=== PATIENT | female | born 1985 ===

== ENCOUNTER 2024-10-27 08:49 | Outpatient (AMB) | payer BC, SELFPAY ==
--- NOTE | 2024-10-27 08:52 | MHC.OFFVIS ---
Vital Signs 10/27/24 08:59 Height 5 ft 2 in Weight 111 lb 4 oz BMI 20.3 BP 113/76 Blood Pressure Location Rt brachial Position Sitting Pulse 78 Pulse Source Pulse Oximeter Pulse Oximetry (%) 100 Oxygen Delivery Method Room Air Intake Visit Reasons: Chronic pain related to Lupus Intake Note: Pain today 01/14 Account Executive Trainee Required: No Accompanied by: Self / Same As Patient Allergies acetaminophen (From Percocet) Adverse Reaction (Unknown, Verified 10/27/24 08:59) addiction oxycodone (From Percocet) Adverse Reaction (Unknown, Verified 10/27/24 08:59) addiction HPI Comments Details: The patient is a 39-year-old female presenting for initial evaluation with chronic pain management related to systemic lupus erythematosus (SLE) and associated sleep disturbances. The patient reports experiencing widespread joint pain affecting her fingers, wrists, elbows, and ankles since last year. The pain is described as burning, pins and needles, and is rated as 10 out of 10 in severity, particularly worsening at night. She has tried various medications including naproxen, methocarbamol, Tylenol, and topical treatments without significant relief. The patient also reports sleep disturbances due to pain and feelings of fever at night. She has been prescribed amitriptyline 10 mg, which has helped improve her sleep to some extent. The patient has a family history of lupus and kidney disease, with her sister being diagnosed with these conditions. She has undergone x-rays of her back at [facility] in March or April of the previous year. She is currently seeing a Upstream Biomanufacturing Technician for her condition. 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 She has not been on any medication for this dependence recently, except for trazodone for sleep, which she no longer uses. The patient is also noted to have anemia, vitamin B12 deficiency, folic acid deficiency, and vitamin D deficiency. - Onset: Pain began last year. - Quality: Described as burning, pulsing, throbbing, sharp, pins and needles. - Severity: Rated 10 out of 10, worse at night. - Location: Affects fingers, wrists, elbows, ankles, knees, and lower back. - Exacerbating factors: Worsens at night, movements, walking, bending, lifting, prolonged standing - Relieving factors: Amitriptyline has provided some relief for sleep. - Interference: Affects daily activities and sleep. - Affect: Pain impacts psychological well-being, causing stress and sleep disturbances. - Analgesia: Current medications include amitriptyline and previously tried naproxen, methocarbamol, Tylenol, and topical treatments without significant relief. - Adverse Effects: No specific adverse effects from current medications reported. - Activities of Daily Living: Pain affects daily functioning and home and work activities. - Aberrant Drug Related Behaviors: History of Percocet dependence, clean for six years. [facility] Medical History (Updated 10/27/24 @ 15:04 by NIURKA Lama) Polyarthralgia Hearing loss in left ear Iron deficiency Vitamin D deficiency B12 deficiency ANGELIKA positive Anxiety Anemia Asthma exacerbation, mild Opioid abuse, in remission Surgical History (Updated 10/27/24 @ 09:10 by Luma Macias) History of delivery Social History (Updated 10/27/24 @ 09:12 by Luma Macias) Alcohol intake: never e-Cigarette/Vaping Use: Currently Using Substance Use Type: Opiates Last Used Substance Other:: 6 years ago Current occupational status: employed Current occupation: [employer] Review of Systems Const Details: - Musculoskeletal: Reports widespread joint pain affecting fingers, wrists, elbows, and ankles. Denies numbness or tingling. - Neurological: Reports burning, pins and needles sensation. Denies headaches, visual disturbances or dizziness, weakness, bladder or bowel dysfunction or saddle anesthesia. - Sleep: Reports difficulty sleeping due to pain and feelings of fever at night. - Hematologic: Reports anemia, vitamin B12, folic acid, and vitamin D deficiencies. All systems reviewed & are unremarkable except as noted in HPI and below Physical Exam Vital Signs: Last Vital Signs Pulse 78 10/27/24 08:59 BP 113/76 10/27/24 08:59 Pulse Ox 100 10/27/24 08:59 Oxygen Delivery Method Room Air 10/27/24 08:59 BMI result Body Mass Index 20.3 General: Appears afebrile. Alert and oriented. Mood and affect appropriate. Follows and participates in conversation appropriately. Respiratory effort is unlabored. No cough. Able to transition from sit to stand unassisted. Ambulates with bilaterally normal heel strike and toe off. General: Yes no CVA tenderness Back/Spine/Pelvis Other: Patient is able to walk and stand on heels and tip toes with no difficulties demonstrating good motor tone. No limping. Lumbar flexion and extension reproduce moderate pain. Demonstrates 5/5 strength of quadriceps bilaterally as well as flexion/dorsiflexion of bilateral feet against resistance. 2+ pedal pulses bilaterally. Straight leg rise with dorsiflexion positive on the left. +2 patellar and +1 achilles reflexes bilaterally. Facet loading test positive bilaterally. Betty sign positive bilaterally, Yogi?s, Gaenslen, Pelvic compression and Stinchfield tests are positive bilaterally, worse on the left. No groin pain with I/E hip rotations. Valsalva maneuver negative. Multiple widespread tender points bilaterally, including upper and lower extremities. Back: no CVA tenderness and back tenderness Cervical Spine: cervical ROM normal, cervical muscular tenderness, pain with cervical ROM and No Cervical spine tenderness Thoracic/Lumbar Spine: thoracic and lumbar spine normal to inspection, No Thoracic/lumbar spine scar(s), Lasegue's sign positive on the left and diffuse, pain with thoraco-lumbar ROM, paraspinal muscle tenderness, thoraco-lumbar ROM limited, No thoracic spinal tenderness and lumbar spinal tenderness (L4-S1) Pelvis: buttock tenderness on the left Sacroiliac joints: bilaterally (left>right) tender to palpation Extrem General: Yes capillary refill normal, Yes no clubbing, cyanosis or edema and Yes no calf tenderness Results Reviewed Results Reviewed: No imaging reports are available for review. Assessment & Plan Assessment & Plan (1) Chronic pain syndrome: Code(s): G89.4 - Chronic pain syndrome Category: Medical (2) SLE (systemic lupus erythematosus related syndrome): Code(s): M32.9 - Systemic lupus erythematosus, unspecified Category: Medical (3) Low back pain: Code(s): M54.50 - Low back pain, unspecified Category: Medical (4) Lumbar radiculopathy, right: Code(s): M54.16 - Radiculopathy, lumbar region Category: Medical (5) Sacroiliac joint pain: Code(s): M53.3 - Sacrococcygeal disorders, not elsewhere classified Category: Medical (6) Polyarthralgia: Code(s): M25.50 - Pain in unspecified joint Category: Medical Plan The management plan includes initiating pregabalin for chronic pain associated with lupus and chronic pain syndrome with polyarthralgia, with monitoring for efficacy and side effects. Physical therapy is recommended to address musculoskeletal issues, focusing on the sacroiliac joint and left sided lumbar radiculopathy. Cognitive Behavioral Therapy CBT) is advised to manage the psychological impact of chronic pain and improve sleep. The patient should continue follow-up with her Upstream Biomanufacturing Technician for lupus management and discuss potential medication adjustments. A medical release from [facility] is to be obtained for previous imaging studies, with an MRI considered if physical therapy is not effective. All questions and concerns have been answered and patient agreed with the plan. Follow up after PT/medication review and sooner as needed. Patient was informed and verbally consented to the use of an ambient scribe for clinic note documentation during this visit. Orders: Orders PT Evaluation and Treatment Today G89.4 - Chronic pain syndrome, M32.9 - Systemic lupus erythematosus, unspecified, M53.3 - Sacrococcygeal disorders, not elsewhere classified, M54.16 - Radiculopathy, lumbar region, M54.50 - Low back pain, unspecified Medications: New pregabalin 50 mg PO BEDTIME 30 caps 0RF pain 30 days G89.4 - Chronic pain syndrome, M32.9 - Systemic lupus erythematosus, unspecified, M54.50 - Low back pain, unspecified Coding Level of Care Code New Pt Level 4 (31925) Diagnoses Chronic pain syndrome G89.4 SLE (systemic lupus erythematosus related syndrome) M32.9 Low back pain M54.50 Lumbar radiculopathy, right M54.16 Sacroiliac joint pain M53.3 Polyarthralgia M25.50
[2024-10-27 08:59] VITALS: BP 113/76; PULSE 78; O2SAT 100; BMI 20.3
--- OUTSIDE RECORDS SUMMARY | 2024-10-27 09:17 | XMS_ITS | Clinical Summary ---
Author Organization [facility] Address [address] [place] [address] Care Team Providers Care Fire Alarm Mechanic Name Role Phone Unavailable Primary Care Provider Unavailabl e Source Comments PLEASE NOTE, if this patient is a minor, it may be UNLAWFUL to discuss sensitive information that is contained in these records (such as FAMILY PLANNING, MENTAL HEALTH or SUBSTANCE ABUSE) with the minor patient's parent or other person without the patient's specific authorization.[facility] Immunizations Immunization Administration Dates Next Due PFIZER COVID VACCINE, PURPLE CAP, 12+ 05/10/2021 Social History Tobacco Use Types Packs/Day Years Used Date Smoking Tobacco: Never Assessed Comments Unknown Sex and Gender Information Value Date Recorded Sex Assigned at Not on file Legal Sex Female 11:01 AM PDT Gender Identity Not on file Sexual Orientation Not on file Plan of Treatment Health Maintenance Due Date Last Done Comments Anxiety Screening 1984 Diabetes Screening 1984 HPV Screening 1984 Hepatitis C Screening 1984 Pap + HPV 1984 Tobacco Screening 1984 HIV Screening 10/28/1999 Relationship Safety Screening/Counseling 10/28/1999 Hypertension Screening (#1) 2002 Imm-DTaP/Tdap/Td (1 - Tdap) 10/28/2003 Imm-Hepatitis B (1 of 3 - 19 + 3-dose series) 10/28/2003 Cervical Cancer Screening 2005 Pap Smear 2005 [id number] ( season) 2024 05/10/2021, 09/16/2020, 08/26/2020 Imm-Influenza (#1) 2024 Alcohol and Drug Screen 05/07/2024 Depression Annual Screen 05/07/2024 Cervical Ablation/Cold-Knife Conization Discontinued Cervical Cryotherapy Discontinued Colposcopy Discontinued Endometrial Biopsy Discontinued Excision/Leep Discontinued HPV Genotyping Discontinued Vaginal Pap Discontinued Vulvoscopy Discontinued Insurance [place] MEDICAID DENTAL [facility] D[facility]AL [facility] Member Subscriber Plan / Payer (Ef fective 2020-Present) Name:Tata Fuller Relation to Subscriber:Self Name:Tata Fuller Payer ID:[id number] Group ID:Not on file Type:Medicaid Address: [address] [address] [place] [address]
== END 2024-10-27 09:37 | disposition home or self-care (01) ==
PROVIDERS: PCP Physician Assistant Medical; Referring Provider Physician Assistant Medical; Visit Provider Nurse Practitioner Family
DX: G89.4 Chronic pain syndrome (principal); M32.9 Systemic lupus erythematosus, unspecified; M54.50 Low back pain, unspecified; M54.16 Radiculopathy, lumbar region; M53.3 Sacrococcygeal disorders, not elsewhere classified; M25.50 Pain in unspecified joint
CPT/HCPCS: 99204

== ENCOUNTER → 2024-10-27 08:49 | Outpatient (BNVA) | payer BC, SELFPAY | PROVIDERS: PCP Physician Assistant Medical; Referring Provider Physician Assistant Medical; Visit Provider Nurse Practitioner Family | DX: Z13.89 Encounter for screening for other disorder (principal) ==

== ENCOUNTER 2025-02-23 13:18 | Outpatient (AMB) | payer BC, SELFPAY ==
--- NOTE | 2025-02-23 13:19 | MHC.OFFVIS ---
Vital Signs 02/23/25 13:22 Height 5 ft 2 in Weight 114 lb 4 oz BMI 20.9 BP 134/77 Blood Pressure Location Rt brachial Position Sitting Pulse 76 Pulse Source Pulse Oximeter Pulse Oximetry (%) 100 Oxygen Delivery Method Room Air Intake Visit Reasons: Pain Intake Note: Pain today 01/14 Jewel Staker Required: No Accompanied by: Self / Same As Patient Allergies acetaminophen (From Percocet) Adverse Reaction (Unknown, Verified 02/23/25 13:24) addiction oxycodone (From Percocet) Adverse Reaction (Unknown, Verified 02/23/25 13:24) addiction HPI Comments Details: The patient is a 39-year-old female presenting with neck and bilateral hand pain. The neck pain was initially addressed with a recommendation for physical therapy, which the patient was unable to attend due to scheduling conflicts and work. Currently, the patient reports that the pain has shifted more towards the hands and fingers, with a burning sensation, aching and numbness. The patient has been evaluated for carpal tunnel syndrome by another provider with an EMG scheduled for March 13 at [facility]. The patient experiences burning pain in the hands, particularly affecting the fingers, and has difficulty with certain movements such as pulling the fingers and not able to make a complete fist with her left hand. The patient has not had an x-ray of the hands but will be sent for one to assess for arthritis. The patient has a history of systemic lupus erythematosus, which may be contributing to her symptoms. - Affect: Pain impacts daily activities and mood, especially when exacerbated by heavy lifting at work at [employer] and weather conditions. - Analgesia: Patient will stop Lyrica and restart gabapentin 100 mg three times a day, continue Tylenol, and Motrin for pain management. - Adverse Effects: Lyrica and amitriptyline cause drowsiness. - Activities of Daily Living: Pain limits ability to perform work-related tasks and requires adjustments such as sitting more often. - Aberrant Drug Related Behaviors: None reported. PRIOR: The patient is a 39-year-old female presenting for initial evaluation with chronic pain management related to systemic lupus erythematosus (SLE) and associated sleep disturbances. The patient reports experiencing widespread joint pain affecting her fingers, wrists, elbows, and ankles since last year. The pain is described as burning, pins and needles, and is rated as 10 out of 10 in severity, particularly worsening at night. She has tried various medications including naproxen, methocarbamol, Tylenol, and topical treatments without significant relief. The patient also reports sleep disturbances due to pain and feelings of fever at night. She has been prescribed amitriptyline 10 mg, which has helped improve her sleep to some extent. The patient has a family history of lupus and kidney disease, with her sister being diagnosed with these conditions. She has undergone x-rays of her back at [facility] in March or April of the previous year. She is currently seeing a Recreation Facility Attendant for her condition. 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 She has not been on any medication for this dependence recently, except for trazodone for sleep, which she no longer uses. The patient is also noted to have anemia, vitamin B12 deficiency, folic acid deficiency, and vitamin D deficiency. - Onset: Pain began last year. - Quality: Described as burning, pulsing, throbbing, sharp, pins and needles. - Severity: Rated 10 out of 10, worse at night. - Location: Affects fingers, wrists, elbows, ankles, knees, and lower back. - Exacerbating factors: Worsens at night, movements, walking, bending, lifting, prolonged standing - Relieving factors: Amitriptyline has provided some relief for sleep. - Interference: Affects daily activities and sleep. - Affect: Pain impacts psychological well-being, causing stress and sleep disturbances. - Analgesia: Current medications include amitriptyline and previously tried naproxen, methocarbamol, Tylenol, and topical treatments without significant relief. - Adverse Effects: No specific adverse effects from current medications reported. - Activities of Daily Living: Pain affects daily functioning and home and work activities. - Aberrant Drug Related Behaviors: History of Percocet dependence, clean for six years. [facility] Medical History Polyarthralgia Hearing loss in left ear Iron deficiency Vitamin D deficiency B12 deficiency ANGELIKA positive Anxiety Anemia Asthma exacerbation, mild Opioid abuse, in remission Surgical History History of delivery Social History Alcohol intake: never e-Cigarette/Vaping Use: Currently Using Substance Use Type: Opiates Current occupational status: employed Current occupation: [employer] Review of Systems Const Details: - Musculoskeletal: Reports neck pain, burning sensation in hands and fingers, difficulty with hand movements. - Neurological: Reports numbness and tingling in fingers, difficulty flexing left 4th finger and complete fist on the left All systems reviewed & are unremarkable except as noted in HPI and below Physical Exam Vital Signs: Last Vital Signs Pulse 76 02/23/25 13:22 BP 134/77 02/23/25 13:22 Pulse Ox 100 02/23/25 13:22 Oxygen Delivery Method Room Air 02/23/25 13:22 BMI result Body Mass Index 20.9 General: Appears afebrile. Alert and oriented. Mood and affect appropriate. Follows and participates in conversation appropriately. Respiratory effort is unlabored. No cough. Able to transition from sit to stand unassisted. Ambulates with bilaterally normal heel strike and toe off. Neck Other: Multiple widespread tender points bilaterally, including upper and lower extremities. +Tinel's and Phalen's bilaterally, left>right. Difficulty to make fist on the left and increased pain with flexion left 4th digit. Full ROM of bilateral hand, fingers, and thumbs, with increased with wrist flexion bilaterally. No erythema, no joint enlargement, no local temperature or swelling. Neck: Yes normal visual inspection, Yes full ROM, Yes no lymphadenopathy, Yes supple, No anterior neck swelling, Yes no JVD, No prominent supraclavicular fat pad and No prominent dorsocervical fat pad Back/Spine/Pelvis Cervical Spine: cervical ROM normal, cervical muscular tenderness, pain with cervical ROM and No Cervical spine tenderness Thoracic/Lumbar Spine: thoracic and lumbar spine normal to inspection, No Thoracic/lumbar spine scar(s), pain with thoraco-lumbar ROM, thoraco-lumbar ROM limited, No thoracic spinal tenderness and lumbar spinal tenderness (L4-S1) Sacroiliac joints: bilaterally (left>right) tender to palpation Extrem General: Yes capillary refill normal, Yes no clubbing, cyanosis or edema and Yes no calf tenderness Results Reviewed Results Reviewed: XR Hand Bilat min 3v 02/23/25 CLINICAL INFORMATION: Pain FINDINGS: Right hand: Osseous mineralization is within normal limits. No fracture or dislocation. No significant joint space narrowing or marginal osteophytes. No osseous erosion. No abnormal soft tissue calcification. Left hand: Osseous mineralization is within normal limits. No fracture or dislocation. No significant joint space narrowing or marginal osteophytes. No osseous erosion. No abnormal soft tissue calcification. IMPRESSION: No radiographic evidence of acute osseous findings Assessment & Plan Assessment & Plan (1) Bilateral hand pain: Code(s): M79.641 - Pain in right hand; M79.642 - Pain in left hand Category: Medical (2) Polyarthralgia: Code(s): M25.50 - Pain in unspecified joint Category: Medical (3) Carpal tunnel syndrome: Code(s): G56.00 - Carpal tunnel syndrome, unspecified upper limb Category: Medical (4) Chronic pain syndrome: Code(s): G89.4 - Chronic pain syndrome Category: Medical Plan The patient will undergo an EMG on March 13 to evaluate for carpal tunnel syndrome at [facility]. Following the EMG, a referral to a Hand specialist will be made to further assess and manage the hand symptoms. An x-ray of the hands completed today after today's visit showed no acute osseous findings. Results were called to patient. The patient is advised to stop Lyrica and restart gabapentin 100 mg three times a day, along with Tylenol and Motrin as needed for pain management. All questions and concerns have been answered and patient agreed with the treatment plan. Follow up for medication review and sooner as needed. Patient was informed and verbally consented to the use of an ambient scribe for clinic note documentation during this visit. Orders: Orders XR Hand Bilat min 3v Today M79.641 - Pain in right hand, M79.642 - Pain in left hand Referrals Hand Surgery Referral G56.00 - Carpal tunnel syndrome, unspecified upper limb, M25.50 - Pain in unspecified joint, M79.641 - Pain in right hand, M79.642 - Pain in left hand Medications: New gabapentin 100 mg PO TID 90 caps 0RF pain 30 days G56.00 - Carpal tunnel syndrome, unspecified upper limb, G89.4 - Chronic pain syndrome, M79.641 - Pain in right hand, M79.642 - Pain in left hand Discontinued pregabalin Discontinued Reason: Patient Completed Course 50 mg PO BEDTIME 30 days 30 caps 0RF pain G89.4 - Chronic pain syndrome, M32.9 - Systemic lupus erythematosus, unspecified, M54.50 - Low back pain, unspecified Coding Level of Care Code Est Pt Level 4 (36265) Complex EM visit Add On G2211 Diagnoses Bilateral hand pain M79.641; M79.642 Polyarthralgia M25.50 Carpal tunnel syndrome G56.00 Chronic pain syndrome G89.4
[2025-02-23 13:22] VITALS: BP 134/77; PULSE 76; O2SAT 100; BMI 20.9
--- OUTSIDE RECORDS SUMMARY | 2025-02-23 16:20 | XMS_ITS | Encounter Summary ---
Author Organization [facility] Address [address] [place] [address] Care Team Providers Care Urologist Physician Name Role Phone Long Cho Primary Care Provider [phone] Encounter Details Date Type Department Care Team (Late st Contact Info) Description 12/30/2024 Results Follow-Up [facility] [address] [place] [address] Band Saw Operator Cake Cutting: Alecia Beltran MD [address] [place] [id number] Social History Tobacco Use Types Packs/Day Years Used Date Smoking Tobacco: Never Passive Smoke Exposure: Never Smokeless Tobacco: Never Alcohol Use Standard Drinks/Week Comments Never 0 (1 standard drink = 0.6 oz pur e alcohol) Comments Unknown Sex and Gender Information Value Date Recorded Sex Assigned at Female 10/16/2024 10:47 AM EDT Legal Sex Female 10:45 AM EDT Gender Identity Female 12/13/2024 12:13 PM EDT Sexual Orientation Straight 12/13/2024 12 :13 PM EDT documented as of this encounter Miscellaneous Notes * Result Encounter Note - Alecia Issa MD - 12/30/2024 11:09 AM EDT Hi Mrs. Fuller, Thank you for having these labs and xrays done. The labs were negative or normal for conditions like lupus, rheumatoid arthritis and celiac disease. Your inflammation markers were normal and muscle enzyme was also normal (not suggesting muscle breakdown). The xray of your sarcoiliac joints (located at the buttock area) showed some [id number] but no damage from an autoimmune process. Overall this workup did not show a specific autoimmune rheumatic disease. Please let me know if you have questions. Best regards, Alecia Issa MD International Marketing Executive Division of Rheumatology documented in this encounter Plan of Treatment Upcoming Encounters Date Type Department Care Team (Late st Contact Info) Description 03/13/2025 8:00 AM EST Procedure visit [facility] - EMG [address] [address] Kyree Murray MD [address] [place] [id number] documented as of this encounter Visit Diagnoses Not on filedocumented in this encounter Care Teams Urologist Physician Relationship Specialty Start Date End Date Long Cho [address] [place] [address] PCP - General 10/16/24 documented as of this encounter
--- OUTSIDE RECORDS SUMMARY | 2025-02-23 16:20 | XMS_ITS | Clinical Summary ---
Author Organization [facility] Address [address] [place] [address] Care Team Providers Care Water Resources Technical Officer Name Role Phone MarquisLong hurtado Primary Care Provider [phone] Allergies Active Allergy Reactions Criticality Noted Date Comments Hydrocodone-Acetaminophen Itching,Hives 025 Oxycodone Unknown 05/03/2024 Medications amitriptyline (ELAVIL) 10 mg tablet SMARTSI Tablet(s) By Mouth Every Night Active cephalexin (KEFLEX) 500 mg capsule SMARTSI Capsule(s) By Mouth 4 Times Daily 4 Active fluticasone propionate (FLONASE) 50 mcg/actuation nasal spray SPRAY 1 SPRAY EVERY DAY BY INTRANASAL ROUTE FOR 42 DAYS, FOR SEASONAL ALLERGIES. 5 Active loratadine (CLARITIN) 10 mg tablet TAKE 1 TABLET EVERY DAY BY ORAL ROUTE FOR 42 DAYS, FOR SEASONAL ALLERGIES. 5 Active omeprazole (PriLOSEC) 10 mg capsule 5 Active ondansetron (ZOFRAN ODT) 4 mg disintegrating tablet SMARTSI Tablet(s) By Mouth 3 Times Daily PRN 4 Active triamcinolone acetonide (KENALOG) 0.1% cream SMARTSIG:Topic al Twice Daily PRN 5 Active Active Problems Problem Noted Date Diagnosed Date Chronic midline low back pain without sciatica 0 12/16/2024 Total body pain 12/16/2024 Hand paresthesia 12/16/2024 Encounters Date Type Department Care Team Description 12/30/2024 Results Follow-Up [facility] [address] [place] [address] Piano Professor: Alecia Beltran MD 12/16/2024 2:58 PM EDT - 12/16/2024 11:59 PM EDT Hospital Encounter [facility] Xray [address] [place] [address] Alecia Issa MD Chronic midline low back pain without sciatica Discharge Disposition: Home or Self Care (01) 12/16/2024 2:00 PM EDT Office Visit [facility] [address] [place] [address] Piano Professor: Alecia Beltran MD Chronic midline low back pain without sciatica (Primary Dx); Total body pain; Hand paresthesia from Last 3 Months Social History Tobacco Use Types Packs/Day Years Used Date Smoking Tobacco: Never Passive Smoke Exposure: Never Smokeless Tobacco: Never Tobacco Cessation:Counseling Given: Not Answered Alcohol Use Standard Drinks/Week Comments Never 0 (1 standard drink = 0.6 oz pur e alcohol) Comments Unknown Sex and Gender Information Value Date Recorded Sex Assigned at Female 10/16/2024 10:47 AM EDT Legal Sex Female 10:45 AM EDT Gender Identity Female 12/13/2024 12:13 PM EDT Sexual Orientation Straight 12/13/2024 12 :13 PM EDT Last Filed Vital Signs Vital Sign Reading Time Taken Comments Blood Pressure 110/69 12/16/2024 2:03 PM EDT Pulse 83 12/16/2024 2:03 PM EDT Temperature 36.8 C (98.2 F) 12/16/2024 2:03 PM EDT Respiratory Rate - - Oxygen Saturation - - Inhaled Oxygen Concentration - - Weight 51.7 kg (114 lb) 12/16/2024 2:03 PM EDT Height - - Body Mass Index - - Plan of Treatment Upcoming Encounters Date Type Department Care Team (Late st Contact Info) Description 03/13/2025 8:00 AM EST Procedure visit [facility] [address] [facility] [address] [place] [address] [place] [address] Kyree Murray MD [address] [place] [address] Health Maintenance Due Date Last Done Comments Cervical Cancer Screening 1984 HIV Screening 1984 HPV and Pap Smear 1984 Hepatitis C Screening 1984 Pap Smear 1984 Varicella Vaccines (1 of 2 - 13+ 2-dose series) 1997 Hepatitis B Vaccines (1 of 3 - 19+ 3-dose series) 10/28/2003 Pneumococcal Vaccine: Pediat jose manuel (0-5 Years) and At-Risk Patients (6-50 Years) (1 of 2 - PCV) 10/28/2003 DTaP,Tdap,and Td Vaccines (2 - Td or Tdap) 10/26/2021 2011 Alcohol/Substance Use Screening 05/07/2024 Depression Screening and Follow-Up 05/07/2024 Social Drivers of Health Marycruz ual Screening 05/07/2024 Mammogram 2024 COVID-19 Vaccine ( season) 2025 05/10/2021, 09/16/2020, 08/26/2020 Influenza Vaccine (#1) 2025 03/25/2015, 2006 RSV Vaccine (60+ years old a nd patients) (1 - 1-dose 75+ series) 10/28/2059 Procedures * Due to [place] state law, this organization might not be sharing negative HIV tests. Procedure Name Priority Date/Time Associated Diagnosis Comments ANGELIKA, TITER AND PATTERN Routine 3:27 PM EDT Total body pain CK Routine 12/16/2024 3:27 PM EDT Total body pain SEDIMENTATION RATE, AUTOMATED Routine 12/16/2024 3:27 PM EDT Total body pain C-REACTIVE PROTEIN Routine 12/16/2024 3: 27 PM EDT Total body pain CYCLIC CITRULLLNATED PEPTIDE (CCP) ANTIBODY, IGG Routine 12/16/2024 3:27 PM EDT Total body pain RHEUMATOID FACTOR Routine 12/16/2024 3:2 7 PM EDT Total body pain COMPLEMENT C3C AND C4C Routine 3:27 PM EDT Total body pain IMMUNOGLOBULINS PANEL (IGG, IGA, IGM) Routine 12/16/2024 3:27 PM EDT Total body pain ANGELIKA SCREEN, IFA, W/REFLEX TO TITER & PATTERN Routine 12/16/2024 3:27 PM EDT Total body pain ANGELIKA SPECIFIC ANTIBODY Routine 12/16/2024 3:27 PM EDT Total body pain CELIAC DISEASE DIAGNOSITC PANEL Routine 12/16/2024 3:27 PM EDT Total body pain XR SACROILIAC JOINTS 3+ VW Routine 12/16/2024 3:07 PM EDT Chronic midline low back pain without sciatica from Last 3 Months Results * Due to [place] state law, this organization might not be sharing negative HIV tests. * (ABNORMAL) ANGELIKA, Titer and Pattern (12/16/2024 3:27 PM EDT) ANGELIKA Titer 1 1:80(H) titer 12/19/2024 11:09 AM EDT [employer] Comment: A low level ANGELIKA titer may be present in pre-clinical autoimmune diseases and normal individuals. Reference Range <1:40 Negative 1:40-1:80 Low Antibody Level >1:80 Elevated Antibody Level ANGELIKA Pattern 1 Nuclear, Homogeneo us(A) 12/19/2024 11:09 AM EDT [employer] Comment: Homogeneous pattern is associated with systemic lupus erythematosus (SLE), drug-induced lupus and juvenile idiopathic arthritis. AC-1: Homogeneous International Consensus on ANGELIKA Patterns (https://doi.org/10.1515/klfu-8885-9768) Blood Structure of peripheral vein / Unknown Venipuncture / Unknown 12/16/2024 3:27 PM EDT 12/16/2024 3:44 PM EDT V[facility]EN - 12/19/2024 11:09 AM EDT [facility] Received Date:[id number] us Alecia Issa MD LAB BLOOD ORDERABLES Final Re sult [facility] [address], [place] [address], [place] [phone] [employer] [facility] [address], [place] [address], [place] [phone] * Complement C3c and C4c (12/16/2024 3:27 PM EDT) Complement Component C3C 112 83 - 193 mg/dL 12/17/2024 7:51 AM EDT [employer] [facility] Complement Component C4C 17 15 - 57 mg/dL 12/17/2024 7:51 AM EDT [employer] [facility] Blood Structure of peripheral vein / Unknown Venipuncture / Unknown 12/16/2024 3:27 PM EDT 12/16/2024 3:44 PM EDT V[facility] GOODEN - 12/17/2024 7:51 AM EDT [facility] Received Date:[id number] us Alecia Issa MD LAB BLOOD ORDERABLES Final Re sult [facility] [address], [place] [address], [place] [phone] [employer] [facility] [address], [place] [address], [place] [phone] * Celiac Diagnostic Panel w/Gliadin, All Ages (Includes: IgA, tTG IgA/IgG and Giadin IgA/IgG) (12/16/2024 3:27 PM EDT) Tissue Transglutaminase Ab, IgG <1.0 U/mL 12/18/2024 11:17 PM EDT [employer] [facility] Comment: Value Interpretation ----- <15.0 Antibody not detected > or = 15.0 Antibody detected Tissue Transglutaminase Ab, IgA <1.0 U/mL 12/18/2024 11:17 PM EDT [employer] [facility] Comment: Value Interpretation ----- <15.0 Antibody not detected > or = 15.0 Antibody detected Gliadin Ab IgA <1.0 U/mL 12/18/2024 11:17 PM EDT [employer] [facility] Comment: Value Interpretation ----- <15.0 Antibody not detected > or = 15.0 Antibody detected Gliadin Ab IgG <1.0 U/mL 12/18/2024 11:17 PM EDT [employer] [facility] Comment: Value Interpretation ----- <15.0 Antibody not detected > or = 15.0 Antibody detected Immunoglobulin A 214 47 - 310 mg/dL 12/18/2024 11:17 PM EDT [employer] [facility] Blood Structure of peripheral vein / Unknown Venipuncture / Unknown 12/16/2024 3:27 PM EDT 12/16/2024 3:44 PM EDT [facility] - 12/18/2024 11:17 PM EDT [facility] Received Date: Alecia Issa MD LAB BLOOD ORDERABLES Final Re sult [facility] [address] [facility] 3rd Floor, [place] [address], [place] [phone] [employer] [facility] 200 [facility] 3rd Floor, [place] [address], [place] [phone] * Cyclic Citrullinated Peptide (CCP) Antibody, IgG (12/16/2024 3:27 PM EDT) Cyclic Citrullinated Peptide (CCP) Ab (IgG) <16 UNITS 12/19/2024 10:27 PM EDT [employer] [facility] Comment: Reference Range Negative: <20 Weak Positive: 20-39 Moderate Positive: 40-59 Strong Positive: >59 Blood Structure of peripheral vein / Unknown Venipuncture / Unknown 12/16/2024 3:27 PM EDT 12/16/2024 3:44 PM EDT [facility] - 12/19/2024 10:27 PM EDT [facility] Received Date: us Alecia Issa MD LAB BLOOD ORDERABLES Final Re sult Performing Organization Address City/[facility]/ZIP Co de Phone Number SHAHLA [place] [address] [facility] 3rd Floor, [place] [address], [place] [phone] [employer] [facility] [address], [place] [address], [place] [phone] * (ABNORMAL) ANGELIKA Screen, IFA, w/Reflex to Titer & Pattern (12/16/2024 3:27 PM EDT) ANGELIKA Screen, IFA POSITIVE (A) NEGATIVE 12/19/2024 11:09 AM EDT [employer] [facility] Comment: ANGELIKA IFA is a first line screen for detecting the presence of up to approximately 150 autoantibodies in various autoimmune diseases. A positive ANGELIKA IFA result is suggestive of autoimmune disease and reflexes to titer and pattern. Further laboratory testing may be considered if clinically indicated. For additional information, please refer to http://education.AppTap/faq/CEO138 (This link is being provided for informational/ educational purposes only.) Blood Structure of peripheral vein / Unknown Venipuncture / Unknown 12/16/2024 3:27 PM EDT 12/16/2024 3:44 PM EDT [facility] - 12/19/2024 11:09 AM EDT [facility] Received Date: us Alecia Issa MD LAB BLOOD ORDERABLES Final Re sult SHAHLA GOODEN [address] [facility] 3rd Floor, [place] [address], [place] [phone] [facility] 200 [facility] 3rd Floor, [place] [address], [place] [phone] * Sedimentation Rate (12/16/2024 3:27 PM EDT) Sed Rate 9 <20 mm/Hr mm/Hr 12/16/2024 3:58 PM EDT [facility] Blood Structure of peripheral vein / Unknown Venipuncture / Unknown 12/16/2024 3:27 PM EDT 12/16/2024 3:44 PM EDT us Alecia Issa MD LAB BLOOD ORDERABLES Final Re sult [facility] [address] [place] [address], [place] * Rheumatoid Factor (12/16/2024 3:27 PM EDT) Rheumatoid Factor <10 <14 IU/mL 12/17/2024 4:15 AM EDT [employer] [facility] Blood Structure of peripheral vein / Unknown Venipuncture / Unknown 12/16/2024 3:27 PM EDT 12/16/2024 3:44 PM EDT Narrative [facility] - 12/17/2024 4:15 AM EDT [facility] Received Date:[id number] us Alecia Issa MD LAB BLOOD ORDERABLES Final Re sult SHAHLA GOODEN [address] [facility] 3rd Floor, [address] [facility] [place] [address], [place] [phone] [facility] 200 [facility] 3rd Floor, [place] [address], [place] [phone] * Immunoglobulins Panel (IgG, IgA, IgM) (12/16/2024 3:27 PM EDT) Immunoglobulin A 205 47 - 310 mg/dL 12/17/2024 4:15 AM EDT [employer] [facility] IgG, Serum 1277 600 - 1640 mg/dL 12/17/2024 4:15 AM EDT [employer] [facility] Immunoglobulin M 202 50 - 300 mg/dL 12/17/2024 4:15 AM EDT [employer] [facility] Blood Structure of peripheral vein / Unknown Venipuncture / Unknown 12/16/2024 3:27 PM EDT 12/16/2024 3:44 PM EDT [facility] - 12/17/2024 4:15 AM EDT [facility] Received Date:[id number] Alecia Issa MD LAB BLOOD ORDERABLES Final Re sult Performing Organization Address City/[facility]/ZIP Co de Phone Number [facility] [address] [facility] [address] [facility], [place] [address], [place] [phone] [employer] [facility] 200 [facility] [address] [facility], [place] [address], [place] [phone] * C-Reactive Protein (12/16/2024 3:27 PM EDT) Pathologist [facility] C Reactive Protein <3.0 <=9.9 mg/L 12/16/2024 4:25 PM EDT [facility] Blood Structure of peripheral vein / Unknown Venipuncture / Unknown 12/16/2024 3:27 PM EDT 12/16/2024 3:44 PM EDT Alecia Issa MD LAB BLOOD ORDERABLES Final Re sult [facility] [address] [place] [address], * ANGELIKA Specific Antibody w/Reflex to [place] (12/16/2024 3:27 PM EDT) Pathologist [facility] ANGELIKA Screen, Immunoassay NEGATIVE NEGATIVE 12/17/2024 9:17 PM EDT [employer] [facility] Comment: A negative ANGELIKA Multiplex indicates the absence of detectable antibodies to component analytes consisting of double stranded DNA (dsDNA), chromatin, ribonucleoprotein (CUSTOMER SUPPORT REPRESENTATIVE), Piedra/CUSTOMER SUPPORT REPRESENTATIVE (Sm/CUSTOMER SUPPORT REPRESENTATIVE), Piedra (Sm), SS-A, SS-B, Layla-1, centromere B, Scl-70 and ribosomal P. A negative result should be interpreted in the context of the clinical and laboratory findings and does not rule out autoimmune disease characterized by other autoantibody specificities such as rheumatoid arthritis, autoimmune hepatitis, primary biliary cirrhosis, autoimmune thyroiditis, Kittson's disease, pernicious anemia, autoimmune neuropathies, vasculitis, celiac disease, and bullous disease. For additional information, please refer to http://education.AppTap/faq/HHY406 (This link is being provided for informational/ educational purposes only.) Blood Structure of peripheral vein / Unknown Venipuncture / Unknown 12/16/2024 3:27 PM EDT 12/16/2024 3:44 PM EDT Narrative [facility] [place] - 12/17/2024 9:17 PM EDT [facility] Received Date: us Alecia Issa MD LAB BLOOD ORDERABLES Final Re sult Performing Organization Address City/State/[facility] Co de Phone Number [facility] [address] [facility] 3rd Floor, [place] [address], [place] [phone] [employer] [facility] 200 [facility] 3rd Floor, [place] [address], [place] [phone] * Creatine Kinase (12/16/2024 3:27 PM EDT) CK 80 38 - 206 U/L 12/16/2024 4:21 PM EDT [facility] Blood Structure of peripheral vein / Unknown Venipuncture / Unknown 12/16/2024 3:27 PM EDT 12/16/2024 3:44 PM EDT us Alecia Issa MD LAB BLOOD ORDERABLES Final Re sult [facility] [address] [place] [address], [place] * XR Sacroiliac Joints 3+ vw (12/16/2024 3:07 PM EDT) Anatomical Region Laterality Modality Body, Spine, Pelvis Computed Rad iography 12/16/2024 3:16 PM EDT Impressions 12/16/2024 3:17 PM EDT SI joints AP and bilateral oblique views. Mild osteopenia. 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 No erosions suggestive of sacroiliitis or any other arthritides. No acute fractures or dislocations. If this radiology report contains a blank impression section, it is an incomplete radiology report. Please contact the interpreting radiologist or applicable radiology division as soon as possible to obtain the completed interpretation. Workstation ID: [id number] Narrative 12/16/2024 3:17 PM EDT COMPARISON: There are no prior studies available for comparison at this time. FINDINGS AND Resulting Agency Comment [id number] Procedure Note Aster Petit MD - 12/16/2024 COMPARISON: There are no prior studies available for comparison at thistime. FINDINGS AND IMPRESSION: SI joints AP and bilateral oblique views. Mild osteopenia. Bilaterallydegenerative arthropathy of the SI joints right slightly greater thanleft. No erosions suggestive of sacroiliitis or any other arthritides. No acutefractures or dislocations. If this radiology report contains a blank impression section, it is anincomplete radiology report. Please contact the interpreting radiologistor applicable radiology division as soon as possible to obtain thecompleted interpretation. Workstation ID: [id number] Alecia Issa MD IMG XR PROCEDURES Final Resul t from Last 3 Months Insurance [facility] Care Teams Water Resources Technical Officer Relationship Specialty Start Date End Date Long Cho [address] [place] [address] PCP - General 10/16/24
--- OUTSIDE RECORDS SUMMARY | 2025-02-23 16:20 | XMS_ITS | Clinical Summary ---
Author Organization [facility] Address [address] [place] [address] Phone Care Team Providers Care Order Processing Manager Name Role Phone Long Cho Primary Care Provider [phone] Allergies Active Allergy Reactions Criticality Noted Date Comments Oxycodone Unknown 05/03/2024 Medications methocarbamoL (ROBAXIN) 750 mg tablet Take 1 tablet (750 mg total) by mouth 4 (four) times a day. 12 each 4 Active phenazopyridine (PYRIDIUM) 100 mg tablet Take 1 tablet (100 mg total) by mouth 3 (three) times a day if needed for bladder spasms. 6 tablet 4 Active fluticasone propionate (FLONASE) 50 mcg/actuation nasal spray SPRAY 1 SPRAY EVERY DAY BY INTRANASAL ROUTE FOR 42 DAYS, FOR SEASONAL ALLERGIES. 5 Active loratadine (CLARITIN) 10 mg tablet TAKE 1 TABLET EVERY DAY BY ORAL ROUTE FOR 42 DAYS, FOR SEASONAL ALLERGIES. 5 Active naproxen (NAPROSYN) 500 mg tablet TAKE 1 TABLET BY MOUTH EVERY 12 HOURS WITH FOOD NEEDED 5 Active amitriptyline (ELAVIL) 10 mg tablet Take by mouth at bedtime. Active omeprazole OTC (PriLOSEC OTC) 20 mg EC tablet Take 1 tablet (20 mg total) by mouth 1 (one) time each day. Do not crush, chew, or split. Active Active Problems Problem Noted Date Diagnosed Date Low back pain 10/20/2024 Bipolar affective disorder (CMS/HCC V24, CMS/HCC V28) 10/20/2024 Anemia Anxiety Asthma Opiate abuse, continuous (CMS/[facility] V24, CMS/[facility] V 28) Medical History Medical History Date Comments Anxiety Asthma Opiate abuse, continuous (CMS/[facility] V24, CMS/[facility] V 28) Anemia Family History Medical History Relation Name Comments Hyperlipidemia Father Breast cancer Maternal Grandfather Lupus Mother Rheum arthritis Mother Stroke Mother Multiple sclerosis Other DAUGHTER Fibromyalgia Sister Diabetes type II Son Relation Name Status Comments Father Maternal Grandfather Mother Other Sister Son Alive Social History Tobacco Use Types Packs/Day Years Used Date Smoking Tobacco: Never Smokeless Tobacco: Never Tobacco Cessation:Counseling Given: Not Answered Comments Unknown Sex and Gender Information Value Date Recorded Sex Assigned at Not on file Legal Sex Female 4:31 PM EST Gender Identity Not on file Sexual Orientation Not on file Obstetrics History Last Filed Vital Signs Vital Sign Reading Time Taken Comments Blood Pressure 132/86 05/05/2024 12:15 AM EST Pulse 97 05/05/2024 12:15 AM EST Temperature 37.1 C (98.8 F) 05/05/2024 12:15 AM EST Respiratory Rate 18 05/04/2024 10:17 PM EST Oxygen Saturation 99% 05/05/2024 12:15 AM EST Inhaled Oxygen Concentration - - Weight 49.9 kg (110 lb) 05/04/2024 7:52 PM EST Height 157.5 cm (5' 2 ) 05/04/2024 7:52 PM EST Body Mass Index 20.12 05/04/2024 7:52 PM EST Plan of Treatment Health Maintenance Due Date Last Done Comments Breast Cancer Screening 1984 Hepatitis A Vaccines (1 of 2 - Risk 2-dose series) 10/28/2003 Hepatitis B Vaccines (1 of 3 - 19+ 3-dose series) 10/28/2003 Pneumococcal Vaccine: Pediatrics (0 to 5 Years) and At-Risk Patients (6 to 49 Years) (1 of 2 - PCV) 10/28/2003 Cervical Cancer Screening: P ap Smear 2005 HPV Vaccines (1 - 3-dose SCD M series) 10/28/2011 DTaP,Tdap,and Td Vaccines (2 - Td or Tdap) 10/26/2021 2011 HIV Screening 04/05/2022 Hepatitis C Screening 04/05/2022 Social Influencers of Health Screening 04/05/2022 Depression Screening 05/07/2024 COVID-19 Vaccine (4 - 2024-2 6 season) 2025 05/10/2021, 09/16/2020, 08/26/2020 Influenza Vaccine (#1) 2025 5, 04/24/2007 RSV Immunization Adult Patients (1 - 1-dose 75+ series) 10/28/2059 HIB Vaccines Aged Out No longer eligi ble based on patient's age to complete this topic IPV Vaccines Aged Out No longer eligi ble based on patient's age to complete this topic MMR Vaccines Aged Out No longer eligi ble based on patient's age to complete this topic Meningococcal ACWY Vaccine Aged Out N o longer eligible based on patient's age to complete this topic Meningococcal B Vaccine Aged Out No l onger eligible based on patient's age to complete this topic RSV Immunization Patients Under 20 months Aged Out No longer eligible b ased on patient's age to complete this topic Varicella Vaccines Aged Out No longer eligible based on patient's age to complete this topic Insurance [facility] Member Subscriber Plan / Payer ( fective 2024-Present) Name:DALIA BERGMAN Relation to Subscriber:Self Name:Becky Bergmanalicia Payer ID:[id number] Type:Not on file Address: [address] Care Teams Order Processing Manager Relationship Specialty Start Date End Date Long Cho PA [address] [place] [address] PCP - General Primary Care 10/15/24
--- OUTSIDE RECORDS SUMMARY | 2025-02-23 16:20 | XMS_ITS | Clinical Summary ---
Author Organization [facility] Address [address] [place] [address] Care Team Providers Care Nutrition Manager Name Role Phone Unavailable Primary Care Provider [...] Screening 1984 Diabetes Screening 1984 HPV Screening (self-collect) 1984 HPV Screening 1984 Hepatitis C Screening 1984 Lipid Screening 1984 Pap + HPV 1984 Tobacco Screening 1984 HIV Screening 10/28/1999 Relationship Safety Screening/Counseling 10/28/1999 Hypertension Screening (#1) 2002 Imm-DTaP/Tdap/Td (1 - Tdap) 10/28/2003 Imm-Hepatitis B (1 of 3 - 19 + 3-dose series) 10/28/2003 Cervical Cancer Screening 2005 Pap Smear 2005 Imm-HPV (1 - 3-dose SCDM series) 10/28/2011 Alcohol and Drug Screen 05/07/2024 Depression Annual Screen 05/07/2024 Breast Cancer Screening (Mammogram) 2024 [id number] ( season) 2025 05/10/2021, 09/16/2020, 08/26/2020 Imm-Influenza (#1) 2025 Cervical Ablation/Cold-Knife Conization Discontinued Cervical Cryotherapy Discontinued Colposcopy Discontinued Excision/Leep Discontinued HPV Genotyping Discontinued Vaginal Pap Discontinued Vulvoscopy Discontinued Insurance [place] D[place] [facility] [place] [address] [place] [address] PLAN Member Subscriber Plan / Payer (Ef fective 2020-Present) Name:Tata Fuller Relation to Subscriber:Self Name:Tata Fuller Payer ID:[id number] Group ID:Not on file Type:Medicaid Address: [address] [address] [place] [address]
== END 2025-02-23 13:33 | disposition home or self-care (01) ==
LOC: HO.PMC 13:18
PROVIDERS: PCP Physician Assistant Medical; Visit Provider Nurse Practitioner Family
DX: M79.641 Pain in right hand (principal); M79.642 Pain in left hand; M25.50 Pain in unspecified joint; G56.00 Carpal tunnel syndrome, unspecified upper limb; G89.4 Chronic pain syndrome
CPT/HCPCS: 99214

== ENCOUNTER 2025-02-23 13:18 | Outpatient (REF) | payer BC, SELFPAY ==
--- NOTE | ~2025-02-23 | XR_ITS ---
EXAMINATION: X-ray bilateral hands CLINICAL INFORMATION: Pain COMPARISON: None TECHNIQUE: Right hand 3 views. Left hand 3 views. FINDINGS: Right hand: Osseous mineralization is within normal limits. No fracture or dislocation. No significant joint space narrowing or marginal osteophytes. No osseous erosion. No abnormal soft tissue calcification. Left hand: Osseous mineralization is within normal limits. No fracture or dislocation. No significant joint space narrowing or marginal osteophytes. No osseous erosion. No abnormal soft tissue calcification. XR/XR Hand Bilat min 3v IMPRESSION: No radiographic evidence of acute osseous findings Electronically signed by: Patrick Choi MD 02/23/2025 02:39 PM EDT RP
--- OUTSIDE RECORDS SUMMARY | 2025-02-23 17:04 | XMS_ITS | Data Portability ---
Author Organization [place] [facility] Formerly [facility], Allergy Address [address] [address] Assessment Encounter Date Assessment Date Assessment LastModified by Organization Details LastModified Time 07/24/2024 07/24/2024 38yo female presents for evaluation of subjective left-sided hearing loss. She has associated left ear popping, frequent sneezing, and facial pruritus. Exam is unremarkable. Recommend trial of Fluticasone 2 sprays in each nostril daily and oral Loratadine. No history of glaucoma. Audiometric testing demonstrates normal hearing and normal tympanometry. The patient will return in 6 weeks for reevaluation. If symptoms persist, will obtain formal skin allergy testing. Patient agrees with the plan and all questions were answered. [email or web address] Not available 07/24/2024 12:36:55 Plan of Treatment Reminders Order Date Submit Date Provider Last Modified By Organization Details Last Modified Time Details Appointments None recorded. Lab None recorded. Referral None recorded. Procedures None recorded. Surgeries None recorded. Imaging None recorded. Medication Orders fluticasone propionate 50 mcg/actuati on nasal spray,suspe nsion 2024 025 [facility]acy #[id number], [phone] [place], [address], 12:22:14 loratadine 10 mg tablet 2024 025 [facility]/Pharmacy #[id number], [phone] [place], [address], 12:22:14 Patient TargetsNo targets recorded. Patient InstructionsNo instructions recorded. Reason for Referral None Reported. Results Created Date Observation Date Name Description Value Unit Range Abnormal Flag Note LastModifiedBy Organization Detail LastModifiedTime 07/25/19 audio gram No observ ation record ed. BARCODE Not Available 2024 13:38:58 Result Notes None recorded. Problems Name Problem SNOMED Code Status Onset Date Resolution Date Notes Provider Name and Address Organization Details Recorded Time Sudden sensorineur al hearing loss 951485119 Active 2024 SCOTT MAURILIOABRAHAM, AUD [facility] [place],[facility] [address] [facility], [place], [address], [facility] [place] 11:08:24 Abnormal auditory perception 22631998 Active 2024 SCOTT MAURILIOABRAHAM, AUD [address] [facility] [place],[facility], [place], [address], [facility] [place] 11:12:43 Allergic rhinitis 27575283 Active 2024 NOELLE GOMEZ PA-C [address] [facility], [place], [address], [facility] [place] 12:21:18 Non-allergi c rhinitis 935098489547 Active 2024 NOELLE GOMEZ PA-C [address] [facility], [address] [facility], [place], [address], [facility] - [facility] [place] 12:21:18 Seasonal allergic rhinitis 985383443 Active 2024 NOELLE GOMEZ PA-C [address] [facility] [address] [facility], [place], [address], [facility] - [facility] [place] 12:21:18 Problem Notes None recorded. Procedures Surgical History Date Name Laterality Status Provider Name and Address Organization Details Recorded Time 07/24/2024 Comp Audio with Tymps - 37039 & 12209 completed SCOTT ANJU, AUD [address] [place],[address], [address], [facility] - [facility] [place] 07/24/2024 11:07:58 Imaging Results None recorded. Procedure Notes None recorded. Medical Equipment None Reported. Allergies No known drug allergies Medications Name Sig Start Date Stop Date Status Note LastModified by Organization Details LastModified Time methocarbam ol 500 mg tablet TAKE 1 TABLET BY MOUTH FOUR TIMES A DAY NEEDED active Not Available Not Available No t Available valacyclovi r 1 gram tablet TAKE 1 TABLET BY MOUTH TWICE A DAY active Not Available Not Available No t Available metronidazo le 0.75 % (37.5 mg/5 gram) vaginal gel INSERT 1 APPLICATO RFULE INTRAVAGI ROMINA DAILY X 5 DAYS active Not Available Not Available No t Available sulfamethox azole 800 mg-trimetho prim 160 mg tablet 1 TABLET BY MOUTH EVERY 12 HOURS,X7 DAYS,INST R:DRINK PLENTY OF FLUIDS 07/24 completed Not Available Not Available Not Available triamcinolo ne acetonide 0.1 % topical cream APPLY TWICE DAILY TO RASH UP TO 2 WEEKS/Sun NEEDED. active Not Available Not Available No t Available methocarbam ol 750 mg tablet TAKE 1 TABLET BY MOUTH 4 TIMES A DAY. active Not Available Not Available No t Available amitriptyli ne 10 mg tablet TAKE 1 TABLET BY MOUTH EVERYDAY AT BEDTIME active Not Available Not Available No t Available meclizine 25 mg tablet TAKE 1 TABLET BY MOUTH EVERY DAY FOR 14 DAYS FOR MOTION SICKNESS active Not Available Not Available No t Available phenazopyri dine 100 mg tablet TAKE 1 TABLET (100 MG TOTAL) BY MOUTH 3 TIMES A DAY NEEDED BLADDER SPASMS 07/24 completed Not Available Not Available Not Available cephalexin 500 mg capsule TAKE 1 CAPSULE BY MOUTH FOUR TIMES A DAY FOR 10 DAYS 07/24 completed Not Available Not Available Not Available omeprazole 20 mg capsule,del ayed release TAKE 1 CAPSULE BY MOUTH ONCE DAILY 30 MINUTES TO 1 HOUR BEFORE A MEAL active Not Available Not Available No t Available gabapentin 100 mg capsule TAKE 1 CAPSULE BY MOUTH THREE TIMES A DAY NEEDED FOR PAIN active Not Available Not Available No t Available ondansetron 4 mg disintegrat ing tablet LET 1 TABLET DISSOLVE ON THE TONGUE THREE TIMES DAILY NEEDED FOR NAUSEA OR VOMITING. active Not Available Not Available No t Available fluticasone propionate 50 mcg/actuati on nasal spray,suspe nsion SPRAY 2 SPRAY EVERY DAY INTO BOTH NOSTRILS FOR 42 DAYS, FOR SEASONAL ALLERGIES . active Not Available Not Available No t Available loratadine 10 mg tablet TAKE 1 TABLET EVERY DAY BY ORAL ROUTE FOR 42 DAYS, FOR SEASONAL ALLERGIES . active Not Available Not Available No t Available naproxen 500 mg tablet TAKE 1 TABLET BY MOUTH EVERY 12 HOURS WITH FOOD NEEDED active Not Available Not Available No t Available nitrofurant oin monohydrate /macrocryst als 100 mg capsule TAKE 1 CAPSULE BY MOUTH EVERY 12 HOURS WITH FOOD 02/08 completed Not Available Not Available Not Available pregabalin 50 mg capsule TAKE 1 CAPSULE BY MOUTH EVERY DAY AT BEDTIME FOR PAIN active Not Available Not Available No t Available Vitals Date Recorded Body height Body mass index (BMI) Body weight Provider Name and Address Organization Details Last Updated DateTime 07/24/2024 157.48 cm 20.1 kg/m2 59614.16 g Emely Gibbons [place] [facility] 07/24/2024 11:26:33 Social History None recorded. Functional Status None recorded. Mental Status None recorded. Family History Nothing Reported. Medical History Condition Response Hearing Loss Y Gynecological HistoryNo gynecological history recorded. Obstetrics History GPAL:G 0 P 0 0 0 0 Past Encounters Encounter ID Performer Location Encounter Start Date Encounter Closed Date Diagnosis/Indication Diagnosis SNOMED-CT Code Diagnosis ICD10 Code Diagnosis IMO Codes Diagnosis Note [id number] NOELLE GOMEZ PA-C [facility] [address] [address] 07/24/2024 10:47:18 07/24/2024 11:57:40 Abnormal auditory perception 19700921 H93.299 Right Ear:Normal hearing with excellent speech discrimina tion.Type A tympanogra m.Left Ear:Normal hearing with excellent speech discrimina tion.Type A tympanogra m. Seasonal a llergic rhinitis 417099632 J30.2 Health Concerns Section Related Observation LastModified by Organization Detai ls LastModified Time None Recorded Concern Status LastModified by Organization Details LastModified Time None Recorded Advance Directives Directive None Recorded Payers Insurance Date Sequence Insurance Name Policy Number Policy Martines Covered Member ID Martines Member ID Guarantor Name 07/25/2024 1 [employer]-ID [facility] 35C Tata Fuller [id number] Tata Fuller 08/01/2024 1 [employer]-ID: [facility] [place] EMPLOYEE PROGRAM 35C Tata Fuller [id number] Tata [place] 09/04/2024 1 [facility]: [employer] EMPLOY[employer] PROGRAM Tata Fuller [id number] Tata Fuller Notes Date Note Type Note Provider Name and Address Organization Details Recorded Time 07/24/2024 text/html ROS as noted in the HPI 38yo female presents for evaluation of left-sided hearing loss. This occurred one year ago without inciting event. She reports associated left-sided echo and ear popping. Denies tinnitus, ear pain, or drainage today. She occasionally gets the sensation of drainage. Endorses frequent sneezing and facial itching. No prior ear procedures. Her daughter is deaf in left ear, and patient had genetic testing that demonstrated increased likelihood of hearing loss. 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 She reports history of recurrent sinus infections and seasonal allergies. KAMILAH STANLEY MD [address] [place] [address], [address], [facility] - [facility] 07/24/2024 12:40:49 OBGyn Episode No OBEpisode recorded.
== END 2025-02-23 13:19 | disposition home or self-care (01) ==
LOC: HO.XRAY 13:18
PROVIDERS: PCP Physician Assistant Medical; Visit Provider Nurse Practitioner Family
DX: G89.4 Chronic pain syndrome (principal); G56.03 Carpal tunnel syndrome, bilateral upper limbs; M32.9 Systemic lupus erythematosus, unspecified; M54.50 Low back pain, unspecified; M54.2 Cervicalgia; M25.561 Pain in right knee; M25.562 Pain in left knee; M25.521 Pain in right elbow; M25.522 Pain in left elbow; Z79.899 Other long term (current) drug therapy
CPT/HCPCS: 73130

== ENCOUNTER → 2025-02-23 13:48 | Outpatient (BNV) | payer BC, SELFPAY | PROVIDERS: PCP Physician Assistant Medical; Visit Provider Radiology Diagnostic Ultrasound | DX: M79.641 Pain in right hand (principal) | CPT/HCPCS: 73130 ==